=== PATIENT | male | born 1985 | race Asian ===

== ENCOUNTER 2019-01-03 22:25 | Emergency (ER) | payer OTHER ==
[~2019-01-03] VITALS: Ht 167.6 cm; Wt 68.0 kg
[2019-01-03 22:34] VITALS: Ht 167.6 cm; Wt 68.0 kg
[2019-01-04 01:43] LABS: APPEARANCE FLUID HAZY; COLOR FLUID PALE YELLOW; RBC FLUID 0 /cumm
[2019-01-04 02:27] LABS: SOURCE FLUID SYNOVIAL FLUID
[2019-01-04 02:28] LABS: SITE FLUID KNEE
[2019-01-04 02:29] LABS: WBC FLUID 2198 /cumm
[2019-01-04 02:53] VITALS: BP 131/84
== END 2019-01-04 02:53 | disposition home or self-care (01) ==
LOC: ED 22:25
PROVIDERS: Emergency Medicine
DX: M25.561 Pain in right knee (principal); M79.644 Pain in right finger(s); M25.461 Effusion, right knee
CPT/HCPCS: 90715; J2001